=== PATIENT | male | born 1975 | race Caucasian/White ===

== ENCOUNTER 2019-01-01 15:40 | Emergency (ER) | payer SELFPAY ==
[2019-01-01] MEDS ORDERED: NA CHLORIDE 0.9% 1,000 ML ONE (16:50)
[2019-01-01 17:04] LABS: Absolute Lymphocytes (CBC) 2.2 K/uL (0.7-4.9); Absolute Monocytes 0.5 K/uL (0.1-1.3); Absolute Neutrophil 4.8 K/uL (1.8-8.0); Basophils % 0.8 % (0-1.3); Eosinophils % 2.3 % (0-4.4); Hematocrit 41.1 % (39.6-49.0); Lymphocytes % 28.8 % (15.3-44.8); MPV 8.4 fL (7.6-11.3); Monocytes % 5.9 % (3.3-12.3); RBC Red Blood Cell Count 4.88 M/uL (4.33-5.43)
[2019-01-01 17:10] LABS: Protime INR 0.98
[2019-01-01] MEDS ORDERED: KETOROLAC 30 MG/ML INJ ONE (17:20)
[2019-01-01] MEDS ORDERED: ONDANSETRON 4 MG/2 ML VIAL ONE (17:20)
[2019-01-01 17:21] LABS: ALT/SGPT 45 U/L (12-78); AST/SGOT 29 U/L (15-37); Albumin 3.8 g/dL (3.4-5.0); Alkaline Phosphatase 58 U/L (45-117); BUN Blood Urea Nitrogen 21 mg/dL (7-18); Bicarbonate 26 mmol/L (21-32); Bilirubin Direct < 0.1 mg/dL (0-0.2); Bilirubin Total 0.2 mg/dL (0.2-1.0); Glucose Level 104 mg/dL (74-106); Protein, Total 6.8 g/dL (6.4-8.2); Sodium Level 142 mmol/L (136-145)
[2019-01-01 18:14] LABS: Urine Blood NEGATIVE (NEG); Urine Glucose NEGATIVE (NEG); Urine Protein NEGATIVE (NEG)
[2019-01-01 18:18] LABS: Barbiturates NEGATIVE (NEGATIVE); Benzodiazepines NEGATIVE (NEGATIVE); Cocaine NEGATIVE (NEGATIVE); METHAMPHETAM NEGATIVE (NEGATIVE); Methadone NEGATIVE (NEGATIVE); Opiates NEGATIVE (NEGATIVE); Phencyclidine NEGATIVE (NEGATIVE); THC Cannibis NEGATIVE (NEGATIVE)
--- NOTE | 2019-01-01 18:58 | ER ---
Nurse's Notes [facility] Name: Greg Ortega Age: 43 yrs Sex: Male : 1975 Arrival Date: 01/01/2019 Time: 15:44 Bed 17 Private MD: Diagnosis: Unspecified adverse effect of drug or medicament Presentation: 01/01 15:55 Presenting complaint: Patient states: " I started some new medications on Friday and I ph think I'm having a reaction." Pt reports feeling anxious, N/V, recently started multiple new medications including Depakote and Seoquel, states, " I just don't feel right, like my mind is really foggy.". Transition of care: patient was not received from another setting of care. Onset of symptoms was January 01, 2019. Risk Assessment: Do you want to hurt yourself or someone else? Patient reports desire/thoughts of hurting themselves or someone else. Provider notified. Initial Sepsis Screen: Does the patient meet any 2 criteria? No. Patient's initial sepsis screen is negative. Does the patient have a suspected source of infection? No. Patient's initial sepsis screen is negative. Care prior to arrival: None. 15:55 Method Of Arrival: Ambulatory ph 15:55 Acuity: GANESH 3 ph Historical: - Allergies: 16:00 No Known Allergies; ph - PMHx: 16:00 PTSD; ph - PSHx: 16:00 finger sx; ph - Immunization history:: Adult Immunizations unknown. - Social history:: Smoking status: Patient/guardian denies using tobacco. - Ebola Screening: : No symptoms or risks identified at this time. Screenin:11 Abuse screen: Denies threats or abuse. Nutritional screening: No deficits noted. em Tuberculosis screening: No symptoms or risk factors identified. Fall Risk None identified. Assessment: 16:35 General: Appears in no apparent distress. comfortable, Behavior is calm, cooperative, em Denies fever. Pain: Complains of pain in headache Pain currently is 5 out of 10 on a pain scale. Pain began 1 day ago. Neuro: Level of Consciousness is awake, alert, obeys commands, Oriented to person, place, time, situation, [place] Diver are equal bilaterally Speech is normal, Facial symmetry appears normal, Reports headache. Cardiovascular: Capillary refill < 3 seconds Patient's skin is warm and dry. Respiratory: Airway is patent Respiratory effort is even, unlabored, Respiratory pattern is regular, symmetrical. GI: Abdomen is flat, Reports nausea, vomiting. Derm: Skin is intact, is healthy with good turgor, Skin is pink, warm \\T\\ dry. Musculoskeletal: Capillary refill < 3 seconds, Range of motion: intact in all extremities. 16:45 Reassessment: I agree with the above assessment, DANYEL Stockton. tw2 17:00 Reassessment: reports nausea and headache, rates pain 5/10, provider notified, new em medication orders received. 17:45 Reassessment: Patient appears in no apparent distress at this time. Patient and/or em family updated on plan of care and expected duration. Pain level reassessed. Patient is alert, oriented x 3, equal unlabored respirations, skin warm/dry/pink. Patient denies pain at this time. Patient states feeling better. Patient states symptoms have improved. 18:26 Reassessment: Patient appears in no apparent distress at this time. Patient and/or em family updated on plan of care and expected duration. Pain level reassessed. Patient is alert, oriented x 3, equal unlabored respirations, skin warm/dry/pink. pending results of labs. Vital Signs: 15:58 Pulse 103; Resp 18; Temp 98.4; Pulse Ox 98% on R/A; Weight 93.89 kg; Height 5 ft. 8 in. ph (172.72 cm); 17:10 BP 108 / 54; Pulse 77; Resp 18; Pulse Ox 99% on R/A; Pain 5/10; em 18:00 BP 112 / 54; Pulse 85; Resp 16; Pulse Ox 100% on R/A; Pain 0/10; em 15:58 Body Mass Index 31.47 (93.89 kg, 172.72 cm) ph ED Course: 15:44 Patient arrived in ED. mr 15:58 Triage completed. ph 16:00 Arm band placed on. ph 16:07 Sid Smart LVN is Primary Nurse. em 16:09 Patrick Garcia PA is PHCP. [facility] 16:09 Daniel Brock MD is Attending Physician. [facility] 16:58 EKG done, by permit technician. reviewed by Patrick URIAS. sm3 17:00 Initial lab(s) drawn, by me, sent to lab. Inserted saline lock: 20 gauge in right em antecubital area, using aseptic technique. Blood collected. 17:11 Patient has correct armband on for positive identification. Call light in reach. Adult em w/ patient. Pulse ox on. NIBP on. 19:16 No provider procedures requiring assistance completed. IV discontinued, intact, em bleeding controlled, No redness/swelling at site. Pressure dressing applied. Administered Medications: 16:59 Drug: NS 0.9% 1000 ml Route: IV; Rate: 1 bolus; Site: right antecubital; em 18:04 Follow up: IV Status: Completed infusion; IV Intake: 1000ml em 17:10 Drug: Zofran 4 mg Route: IVP; Site: right antecubital; ss 17:59 Follow up: Response: No adverse reaction; Nausea is decreased em 17:12 Drug: TORadol 30 mg Route: IVP; Site: right antecubital; ss 17:59 Follow up: Response: No adverse reaction; Pain is decreased em Intake: 18:04 IV: 1000ml; Total: 1000ml. em Outcome: 18:57 Discharge ordered by MD. roberts 19:16 Discharged to home ambulatory, with family. em 19:16 Condition: good 19:16 Discharge instructions given to patient, family, Instructed on discharge instructions, follow up and referral plans. Demonstrated understanding of instructions, follow-up care. 19:17 Patient left the ED. em Signatures: Patrick Garcia PA PA jmm mAauriDana mr Smart, Sid, ROTARY SOIL STABILIZER ROTARY SOIL STABILIZER em Meg Wall, DANYEL RN Jeanne Barajas RN RN Kath Crandall RN RN [facility] Tavia Murdock 3
--- NOTE | 2019-01-01 18:59 | EDPHYS ---
Physician Documentation [facility] Jesus Manuel Name: Greg Ortega Age: 43 yrs Sex: Male : 1975 Arrival Date: 01/01/2019 Time: 15:44 Bed 17 Private MD: ED Physician Daniel Brock HPI: 01/01 16:20 This 43 yrs old Male presents to ER via Ambulatory with complaints of Anxiety.[facility] 16:20 The patient presents to the emergency department with anxiety. Onset: The jmm symptoms/episode began/occurred gradually, 1 week(s) ago. Past psychiatric history: Psychiatric medications include: depakote, seroquel, . This is a 43 year old male with a history of anxiety and ptsd that presents to the ED with complaints of "fogginess" since beginning depakote along with seroquel 1 week prior. Patient denies chest pain, denies shortness of breath, denies vomiting, denies abdominal pain. Patient states having increased panic attack. Patient states he did not feel right earlier today. . Historical: - Allergies: 16:00 No Known Allergies; ph - PMHx: 16:00 PTSD; ph - PSHx: 16:00 finger sx; ph - Immunization history:: Adult Immunizations unknown. - Social history:: Smoking status: Patient/guardian denies using tobacco. - Ebola Screening: : No symptoms or risks identified at this time. ROS: 16:20 Constitutional: Negative for fever, chills, and weight loss, Cardiovascular: Negative jmm for chest pain, palpitations, and edema, Respiratory: Negative for shortness of breath, cough, wheezing, and pleuritic chest pain, Abdomen/GI: Negative for abdominal pain, nausea, vomiting, diarrhea, and constipation, MS/Extremity: Negative for injury and deformity, Neuro: Negative for headache, weakness, numbness, tingling, and seizure. 16:20 All other systems are negative. Exam: 16:20 Constitutional: This is a well developed, well nourished patient who is awake, alert, jmm and in no acute distress. Head/Face: atraumatic. Eyes: EOMI, no conjunctival erythema appreciated ENT: Moist Mucus Membranes Neck: Trachea midline, Supple Chest/axilla: Normal chest wall appearance and motion. 16:20 Cardiovascular: Rate: normal, Rhythm: regular. 16:20 Respiratory: the patient does not display signs of respiratory distress, Respirations: normal, Breath sounds: are clear throughout. 16:20 Abdomen/GI: Inspection: abdomen appears normal, Palpation: abdomen is soft and non-tender, in all quadrants. 16:20 Back: pain, is absent, ROM is normal. 16:20 Musculoskeletal/extremity: Extremities: all appear grossly normal, with no appreciated pain with palpation, ROM: intact in all extremities. 16:20 Skin: Appearance: Color: normal in color. 16:20 Neuro: Orientation: is normal, Mentation: is normal, Memory: is normal. 16:20 Psych: Behavior/mood is pleasant, cooperative, anxious. 18:59 ECG was reviewed by the Attending Physician. [facility] Vital Signs: 15:58 Pulse 103; Resp 18; Temp 98.4; Pulse Ox 98% on R/A; Weight 93.89 kg; Height 5 ft. 8 in. ph (172.72 cm); 17:10 BP 108 / 54; Pulse 77; Resp 18; Pulse Ox 99% on R/A; Pain 5/10; em 18:00 BP 112 / 54; Pulse 85; Resp 16; Pulse Ox 100% on R/A; Pain 0/10; em 15:58 Body Mass Index 31.47 (93.89 kg, 172.72 cm) ph MDM: 16:20 Patient medically screened. [facility] 18:56 Data reviewed: vital signs, nurses notes. [facility] 18:56 Data reviewed: lab test result(s). [facility] 18:56 Counseling: I had a detailed discussion with the patient and/or guardian regarding: the [facility] historical points, exam findings, and any diagnostic results supporting the discharge/admit diagnosis, lab results, the need for outpatient follow up, to return to the emergency department if symptoms worsen or persist or if there are any questions or concerns that arise at home. ED course: Labs, EKG, wnl. Patient is advised to follow up with psychiatry for medication management. Patient has no si or hi. Patient advised to return to the ED if symptoms worsen. Patient currently states symptoms have resolved. . 01/01 16:22 Order name: Acetaminophen [facility] 01/01 16:22 Order name: Basic Metabolic Panel [facility] 01/01 16: Order name: CBC with Diff [facility] 01/01 16:22 Order name: ETOH Level [facility] 01/01 16:22 Order name: Hepatic Function [facility] 01/01 16:22 Order name: PT-INR [facility] 01/01 16:22 Order name: Ptt, Activated; Complete Time: 17:15 [facility] 01/01 16:22 Order name: Salicylate; Complete Time: 18:03 [facility] 01/01 16:22 Order name: Urine Drug Screen; Complete Time: 18:24 [facility] 01/01 16:23 Order name: Acetaminophen Level; Complete Time: 18:03 [facility] 01/01 16:23 Order name: Basic Metabolic Panel; Complete Time: 18:03 [facility] 01/01 16:23 Order name: CBC with Automated Diff; Complete Time: 17:06 [facility] 01/01 16:23 Order name: Alcohol Serum/Plasma; Complete Time: 18:03 [facility] 01/01 16:23 Order name: Liver (Hepatic) Function; Complete Time: 18:03 [facility] 01/01 16:22 Order name: EKG; Complete Time: 16:23 [facility] 01/01 16:22 Order name: EKG - Nurse/Tech; Complete Time: 16:59 [facility] 01/01 16:22 Order name: IV Saline Lock; Complete Time: 17:00 [facility] 01/01 16:22 Order name: Labs collected and sent; Complete Time: 17:00 [facility] 01/01 16:22 Order name: Urine Dipstick-Ancillary (obtain specimen); Complete Time: 18:11 [facility] 01/01 16:23 Order name: Protime (+INR); Complete Time: 17:15 [facility] 01/01 17:59 Order name: Valproic Acid (depakote); Complete Time: 18:42 01/01 18:12 Order name: Urine Dipstick--Ancillary (enter results); Complete Time: 18:15 ms EC:59 Rate is 80 beats/min. Rhythm is regular. QRS Webber is Normal. WA interval is normal. QRS jmm interval is normal. QT interval is normal. No Q waves. T waves are Normal. No ST changes noted. Administered Medications: 16:59 Drug: NS 0.9% 1000 ml Route: IV; Rate: 1 bolus; Site: right antecubital; em 18:04 Follow up: IV Status: Completed infusion; IV Intake: 1000ml em 17:10 Drug: Zofran 4 mg Route: IVP; Site: right antecubital; ss 17:59 Follow up: Response: No adverse reaction; Nausea is decreased em 17:12 Drug: TORadol 30 mg Route: IVP; Site: right antecubital; ss 17:59 Follow up: Response: No adverse reaction; Pain is decreased em Disposition: 01/01/19 18:57 Discharged to Home. Impression: Unspecified adverse effect of drug or medicament. - Condition is Stable. - Discharge Instructions: Panic Attacks. - Medication Reconciliation Form, Thank You Letter, Antibiotic Education, Prescription Opioid Use form. - Follow up: Private Physician; When: 2 - 3 days; Reason: Recheck today's complaints, Continuance of care, Re-evaluation by your physician. Addendum: 01/05/2019 08:25 Co-signature as Attending Physician, Daniel Brock MD I agree with the assessment and c quarles plan of care. Signatures: Dispatcher [employer] Daniel Samaniego MD MD cha Mickail, Joel, PA PA belem Sid Smart, NUCLEAR STATION OPERATOR NUCLEAR STATION OPERATOR em Meg Wall RN RN Jeanne Barajas RN RN ph Corrections: (The following items were deleted from the chart) 01/01 19:17 18:57 01/01/2019 18:57 Discharged to Home. Impression: Unspecified adverse effect of em drug or medicament. Condition is Stable. Forms are Medication Reconciliation Form, Thank You Letter, Antibiotic Education, Prescription Opioid Use. Follow up: Private Physician; When: 2 - 3 days; Reason: Recheck today's complaints, Continuance of care, Re-evaluation by your physician. armando
--- NOTE | 2019-01-02 08:12 | EKG ---
Test Date: 2019-01-01 Test Time: 16:42:48 Stone Polisher Machine: MARGIE MEASUREMENT RESULTS: Intervals: Rate: 80 MO: 134 QRSD: 80 QT: 358 QTc: 412 [place]: P: 60 MO: 134 QRS: 71 T: 36 INTERPRETIVE STATEMENTS: Normal sinus rhythm Normal ECG No previous ECG available for comparison Electronically Signed On 01-02-19 08:10:22 CDT by Ok Ordonez
== END 2019-01-01 19:17 | disposition home or self-care (01) ==
LOC: ER 15:40
DX: F41.9 Anxiety disorder, unspecified (principal); T42.6X5A Adverse effect of other antiepileptic and sedative-hypnotic drugs, initial encounter; T43.595A Adverse effect of other antipsychotics and neuroleptics, initial encounter; F43.10 Post-traumatic stress disorder, unspecified
CPT/HCPCS: 36415; 80048; 80076; 80164; 80307; 80320; 80329; 81003; 85025; 85610; 85730; 93005; 96361; 96374; 96375; 99284; J2405; J7030